=== PATIENT | female | born 2000 | race African-American/Black ===

== ENCOUNTER 2024-12-12 15:01 | Emergency (ER) | payer OTHER, MEDICAID ==
[~2024-12-12] VITALS: Ht 160 cm; Wt 91.0 kg
[2024-12-12 15:14] VITALS: O2SAT 98
[2024-12-12] MEDS ORDERED: AZIT250T12 MT (17:08)
[2024-12-12 17:38] VITALS: BP 114/70; PULSE 80; RESP 18; TEMP 37.61412; O2SAT 98
== END 2024-12-12 19:31 | disposition home or self-care (01) ==
LOC: ER 15:01
DX: R05.9 Cough, unspecified (principal); Z20.822 Contact with and (suspected) exposure to COVID-19
CPT/HCPCS: 81025; 87420; 87426; 87804; 99283